=== PATIENT | female | born 1980 | race Caucasian/White ===

== ENCOUNTER → 2017-10-22 | Outpatient (CLI) | payer BC ==
[~2017-10-22] MED LIST: ACET325T38 PO; AGM875T; ALDACTONE25 MG PO; BETA15CR4 TP; CALC600T12 PO; CALCIUM; CHOL500049 PO; DCS100C PO; ETHI1TAB16 PO; FENO120T PO; HYDR-1231 PO; HYDR-3454 PO; INSU100V5 SQ; LETR2.5T4 PO; METF-380 PO; OMEG10005 PO; OMEP20TA2 PO; ONDA-42 SL; ONDAN4ODT PO; PAMI30VI8 SQ; PREN-142 PO; PREN1TAB39; PROG200C6 PO
--- NOTE | 2017-10-22 11:22 | Diagnostic Imaging Report ---
PROCEDURE: US OB SINGLE FETUS <14 WKS. TECHNIQUE: Multiple Real-time grayscale images were obtained over the gravid uterus in various projections. INDICATION: Type 2 diabetes. . COMPARISON: None. FINDINGS: There is a single live intrauterine gestation demonstrated. The crown/rump length measures 2.25 cm corresponding to an estimated gestational age of 9 weeks 0 days. The heart rate is 174 BPM. The left ovary is not demonstrated. The right ovary appears unremarkable. There is no free fluid. IMPRESSION: Single live intrauterine gestation dating 9 weeks 0 days based on today's ultrasound. No acute abnormality is demonstrated. Dictated by: Dictated on workstation # [id number]
== END ==
LOC: RAD 09:54
PROVIDERS: ATTEND Obstetrics & Gynecology
DX: O24.111 Pre-existing type 2 diabetes mellitus, in pregnancy, first trimester (principal); Z3A.09 9 weeks gestation of pregnancy
CPT/HCPCS: 76801

== ENCOUNTER 2017-11-11 05:32 | Outpatient (CLI) | payer BC ==
[~2017-11-11] VITALS: Ht 165.1 cm; Wt 66.2 kg
[~2017-11-11 05:32] MED LIST changes: -ACET325T38 PO; -BETA15CR4 TP; -CALC600T12 PO; -CHOL500049 PO; -INSU100V5 SQ; -OMEG10005 PO; -PAMI30VI8 SQ; -PREN-142 PO; -PROG200C6 PO
[2017-11-11] MEDS ORDERED: CALC600T12 PO (12:38)
[2017-11-11] MEDS ORDERED: PROG200C6 PO (12:38)
[2017-11-11] MEDS ORDERED: CHOL500049 PO (12:38)
[2017-11-11] MEDS ORDERED: PAMI30VI8 SQ (12:38)
[2017-11-11] MEDS ORDERED: PREN-142 PO (12:38)
[2017-11-11] MEDS ORDERED: OMEG10005 PO (12:38)
[2017-11-11] MEDS ORDERED: INSU100V5 SQ (12:38)
[2017-11-11] MEDS ORDERED: BETA15CR4 TP (12:38)
== END 2017-11-11 13:09 | disposition home or self-care (01) ==
LOC: PREOP 05:32
PROVIDERS: ATTEND Obstetrics & Gynecology
DX: Z01.818 Encounter for other preprocedural examination (principal)

== ENCOUNTER 2017-11-19 08:05 | Day surgery (SDC) | payer BC ==
[~2017-11-19] VITALS: Ht 165.1 cm; Wt 66.2 kg
[~2017-11-19 08:05] MED LIST changes: +BETA15CR4 TP; +CALC600T12 PO; +CHOL500049 PO; +INSU100V5 SQ; +OMEG10005 PO; +PAMI30VI8 SQ; +PREN-142 PO; +PROG200C6 PO
[2017-11-19 08:15] VITALS: BP 117/78
[2017-11-19] MEDS ORDERED: LACTATED RINGERS 1,000 ML IV PRN (08:24)
[2017-11-19 08:45] LABS: BASOPHILS % (AUTO) 0 % (0-10); EOSINOPHILS % (AUTO) 1 % (0-10); HEMATOCRIT 38 % (35-52); HEMOGLOBIN 12.9 G/DL (11.5-16.0); LYMPHOCYTES # (AUTO) 1.3 X 10^3 (1.0-4.0); LYMPHOCYTES % (AUTO) 19 % (12-44); MEAN CORPUSCULAR HEMOGLOBIN 29 PG (25-34); MEAN CORPUSCULAR HGB CONC 34 G/DL (32-36); MEAN CORPUSCULAR VOLUME 84 FL (80-99); MEAN PLATELET VOLUME 9.2 FL (7.4-10.4); MONOCYTES # (AUTO) 0.3 X 10^3 (0.0-1.0); MONOCYTES % (AUTO) 4 % (0-12); NEUTROPHILS # (AUTO) 5.1 X 10^3 (1.8-7.8); NEUTROPHILS % (AUTO) 76 % (42-75); PLATELET COUNT 265 10^3/uL (130-400); RED BLOOD COUNT 4.49 10^6/uL (4.35-5.85); RED CELL DISTRIBUTION WIDTH 14.3 % (10.0-14.5); WHITE BLOOD COUNT 6.7 10^3/uL (4.3-11.0)
[2017-11-19] MEDS ORDERED: BUPIVACAINE 0.75% PRESERVATIVE FREE 10 ML ONE (08:57)
[2017-11-19 09:13] LABS: BAND NEUTROPHILS 3 %; BASOPHILS % (MANUAL) 1 %; EOSINOPHILS % (MANUAL) 0 %; LYMPHOCYTES % (MANUAL) 15 %; MONOCYTES % (MANUAL) 8 %; NEUTROPHILS % (MANUAL) 73 %; RBC MORPH NORMAL
[2017-11-19] MEDS ORDERED: BUPIVACAINE 0.25% 30 ML (SENSORCAINE) VIAL ONE (09:40)
--- NOTE | 2017-11-19 10:19 | Progress Note-Pre Operative ---
Pre-Operative Progress Note H&P Reviewed The H&P was reviewed, patient examined and no changes noted. Date Seen by Provider: Nov 19, 2017 Time Seen by Provider: 10:15 Date H&P Reviewed: Nov 19, 2017 Time H&P Reviewed: 10:10 Pre-Operative Diagnosis: incompetent cervix EMILEE KHAN DO Nov 19, 2017 10:19
[2017-11-19] MEDS ORDERED: LIDOCAINE PF 2% 5 ML (XYLOCAINE) VIAL ONE (11:05)
[2017-11-19] MEDS ORDERED: BUPIVACAINE 0.5% 30 ML (SENSORCAINE) VIAL ONE (11:05)
[2017-11-19] MEDS ORDERED: KETOROLAC 30 MG/ML VIAL ONE (11:44)
[2017-11-19] MEDS ORDERED: KETOROLAC 30 MG/ML VIAL IVP ONE (11:45)
[2017-11-19 12:00] VITALS: BP 109/72
--- NOTE | 2017-11-19 12:26 | Anesthesia-Regional Post-Op ---
Regional Patient Condition Mental Status: Alert, Oriented x3 Circulation: Same as Pre-Op Headache: Absent Sensation: Full Recovery Motor Block: Absent Post Op Complications Complications None Follow Up Care/Instructions Patient Instructions None needed. Anesthesia/Patient Condition Patient is doing well, no complaints, stable vital signs, no apparent adverse anesthesia problems. No complications reported per nursing. TYRELL CROUCH CRNA Nov 19, 2017 12:26
[2017-11-19 12:30] VITALS: BP 114/76
[2017-11-19 13:00] VITALS: BP 111/71
--- NOTE | 2017-11-19 13:41 | Operative Report ---
Operative Report Date of Procedure/Surgery Nov 19, 2017 Surgeon (s) EMILEE KHAN DO Phlebotomist Associate (s): NA Post-Operative Diagnosis History of incompetent cervix; Procedure Performed Richar Cuevas Cervical Cerclage Description of Procedure Anesthesia Type: Spinal Estimated blood loss (mL): minimal Specimen(s) collected/removed none Description of the Procedure With informed consent, the patient was taken to the operating room where spinal anesthesia was found to be adequate. A Turcios catheter was placed. FHT were taken. 173. blood sugar 118. A speculum was placed in the vagina. The cervix was noted to be not dilated. The cervix was measured and found to be over 4 cm in length. The anterior and posterior lips were grasped with Allis clamps. An O Ethibond was placed in pursestring fashion at the internal cervical os level. 6 passed were placed to close the cervix. This was tied at 3 o'clock and cut (3 cm in length). The patient was taken to the recovery room in a stable fashion. hearttones were taken in the recovery room. Findings of the Procedure 4 cm closed cervix 173 FHT Allergies and Home Medications Allergies Coded Allergies: No Known Drug Allergies (Unverified , 11/11/17) Home Medications Acetaminophen 325 Mg Tablet, 650 MG PO Q6H PRN for PAIN-MILD TO MODERATE Prescribed by: EMILEE KHAN on 11/19/17 1343 Betamethasone Dipropionate 15 Gm Cream..g., 15 GM TP EVERY OTHER DAY, (Reported) Calcium Carbonate 600 Mg Tablet, 600 MG PO DAILY, (Reported) Insulin Determir 1,000 Units/10 Ml Soln, 68 UNITS SQ HS, (Reported) Insulin Lispro 100 Unit/1 Ml Cartridge, 8 UNIT SQ BEFORE DINNER, (Reported) [place]-3 Fatty Acids 1,000 Mg Capsule, 2,000 MG PO DAILY, (Reported) Vit No.124/Iron/FA 1 Each Tablet, 1 EACH PO DAILY, (Reported) Progesterone,Micronized 200 Mg Capsule, 200 MG PO DAILY, (Reported) Patient Home Medication List Home Medication List Reviewed: Yes EMILEE KHAN DO Nov 19, 2017 13:41
[2017-11-19] MEDS ORDERED: ACET325T38 PO (13:43)
--- NOTE | 2017-11-19 13:48 | Discharge Inst-Women's Service ---
Discharge Inst-Women's Serv Depart Medication/Instructions New, Converted or Re-Newed RX: Other (No rx needed) Instructions pelvic rest for 1 week. Follow up with Linda next week. Then with Dr. Khan every 2 weeks. Final Diagnosis Incompetent cervix Type II diabetes, insulin requiring, 13 week gestation Consults/Follow Up Additional Follow Up: Yes (1 week with Linda, 3 weeks with Krishna) Activity Activity: Activity as Tolerated Driving Instructions: No Driving for 24 Hours NO SMOKING: NO SMOKING Nothing Inside Vagina: No Douching, No [place], No Tampons Other Activity pelvic rest for 1 week, then condoms Call for bleeding > spotting, new discharge/ water breaking Diet Discharge Diet: ADA Diet Symptoms to Report to : Swelling Increased, Bleeding Excessive, Pain Increased, Fever Over 101 Degrees F, Vaginal Bleeding Increase, Cramps in Feet or Legs For Any Problems or Questions: Contact Your Physician EMILEE KHAN DO Nov 19, 2017 13:48
[2017-11-19 14:00] VITALS: BP 115/66
[2017-11-19 18:40] VITALS: BP 115/66
== END 2017-11-19 18:40 | disposition home or self-care (01) ==
LOC: SDC 08:05
PROVIDERS: ATTEND Obstetrics & Gynecology
DX: O34.31 Maternal care for cervical incompetence, first trimester (principal); O24.111 Pre-existing type 2 diabetes mellitus, in pregnancy, first trimester; Z79.4 Long term (current) use of insulin; Z3A.13 13 weeks gestation of pregnancy
CPT/HCPCS: 36415; 82962; 85007; 85027; 87081; 94664

== ENCOUNTER → 2017-12-26 | Outpatient (CLI) | payer BC ==
[~2017-12-26] MED LIST changes: +ACET325T38 PO
--- NOTE | 2017-12-26 15:46 | Diagnostic Imaging Report ---
INDICATION: Pelvic pain. Study is performed for survey. TECHNIQUE: Multiple real-time grayscale images were obtained over the gravid uterus. COMPARISON: 10/22/2017. FINDINGS: There is a single live fetus in a variable presentation. Placenta is posterior. Amniotic fluid volume is normal. heart rate was recorded at 161 beats per minute. Cervical length is 5.4 cm. survey demonstrates kidneys, bladder, and stomach to be unremarkable. brain is unremarkable. Four-chamber heart view is not well seen. There is a three-vessel cord with normal insertion. The spine is limited in evaluation due to position. Biometrical measurements are as follows: Biparietal 4.07 cm, age 18 weeks 3 days. Head circumference 15.2 cm, age 18 weeks 2 days. Abdominal circumference 12.58 cm, age 18 weeks 2 days. Femur length 2.51 cm, age 17 weeks 5 days. Sonographic estimate age: 18 weeks 2 days. Sonographic estimated date of delivery: 05/27/2017. Estimated Weight: 217 gm (+/- 32 gm). LMP percentile: 26%. heart rate: 161 beats per minute. number: 1 of 1. IMPRESSION: Single live IUP at 18 weeks 2 days gestational age demonstrating normal interval growth when compared with prior exam. No complicating features are seen. Note is made that the four-chamber heart view and spine were limited in evaluation due to position and followup could be performed. Dictated by: Dictated on workstation # [id number]
== END ==
LOC: RAD 12:18
PROVIDERS: ATTEND Obstetrics & Gynecology
DX: O26.892 Other specified pregnancy related conditions, second trimester (principal); R10.2 Pelvic and perineal pain; O34.211 Maternal care for low transverse scar from previous cesarean delivery; O09.212 Supervision of pregnancy with history of pre-term labor, second trimester; O34.32 Maternal care for cervical incompetence, second trimester; Z3A.18 18 weeks gestation of pregnancy
CPT/HCPCS: 76805

== ENCOUNTER → 2018-02-06 | Outpatient (CLI) | payer BC ==
--- NOTE | 2018-02-06 13:31 | Diagnostic Imaging Report ---
INDICATION: Follow up heart, spine, and cervical length. TECHNIQUE: Multiple real-time grayscale images were obtained over the gravid uterus. COMPARISON: 12/26/2017. FINDINGS: There is a single live fetus in a cephalic presentation. heart rate was recorded at 158 beats per minute. The placenta is fundal. Amniotic fluid volume is normal. Cervical length is 4.3 cm. A four-chamber heart view is unremarkable. spine remains limited in evaluation. IMPRESSION: Limited obstetrical ultrasound demonstrating a four-chamber heart view to be satisfactory. spine remains limited in evaluation. Dictated by: Dictated on workstation # [id number]
== END ==
LOC: RAD 11:51
PROVIDERS: ATTEND Obstetrics & Gynecology
DX: O24.112 Pre-existing type 2 diabetes mellitus, in pregnancy, second trimester (principal); O09.522 Supervision of elderly multigravida, second trimester; O34.32 Maternal care for cervical incompetence, second trimester; O34.211 Maternal care for low transverse scar from previous cesarean delivery; O09.212 Supervision of pregnancy with history of pre-term labor, second trimester; Z3A.00 Weeks of gestation of pregnancy not specified
CPT/HCPCS: 76816

== ENCOUNTER → 2018-03-10 | Outpatient (CLI) | payer BC ==
--- NOTE | 2018-03-10 15:48 | Diagnostic Imaging Report ---
INDICATION: Follow-up survey. TECHNIQUE: Multiple real-time grayscale images were obtained over the gravid uterus. COMPARISON: 10/22/2017, 12/26/2017, and 02/06/2018. FINDINGS: The previous OB ultrasound exam of 02/06/2018 noted a single live fetus in cephalic presentation. There were no abnormalities identified, but the spine was not well imaged. On this study, the fetus remains in cephalic presentation. heart motion was noted and a rate of 155 bpm was recorded. The spine is visualized and appears to be within normal limits. The growth parameters are fairly uniform and have progressed as expected since the prior exam. The placenta is posterior and there is no previa. The amniotic fluid volume is within normal limits. The cervix is visualized and measures 3.9 cm in length. IMPRESSION: 1. There is a single live fetus of approximately and the EDC remains . 2. There are no abnormalities identified. In particular, the spine appears to be within normal limits. Biometrical measurements are as follows: Biparietal 7.51 cm, age 30 weeks 1 days. Head circumference 27.97 cm, age 30 weeks 5 days. Abdominal circumference 24.60 cm, age 28 weeks 6 days. Femur length 5.50 cm, age 29 weeks 1 days. Sonographic estimate age: 29 weeks 5 days. Sonographic estimated date of delivery: 05/21/18. Estimated Weight: 1346 gm (+/- 197 gm). LMP percentile: 48%. heart rate: 155 beats per minute. number: 1 of 1. Dictated on workstation # [id number]
== END ==
LOC: RAD 09:40
PROVIDERS: ATTEND Obstetrics & Gynecology
DX: O24.312 Unspecified pre-existing diabetes mellitus in pregnancy, second trimester (principal); O34.32 Maternal care for cervical incompetence, second trimester; Z3A.00 Weeks of gestation of pregnancy not specified
CPT/HCPCS: 76816

== ENCOUNTER 2018-03-26 19:13 | Outpatient (CLI) | payer BC ==
[~2018-03-26] VITALS: Ht 165.1 cm; Wt 66.2 kg
[2018-03-26 19:14] VITALS: BP 139/89
[2018-03-26 19:54] VITALS: BP 139/81
[2018-03-26] MEDS ORDERED: SERT20OR6 PO (20:00)
== END 2018-03-26 20:20 | disposition home or self-care (01) ==
LOC: LDRP 19:13 → WSo 19:13
PROVIDERS: ATTEND Obstetrics & Gynecology
DX: O36.8130 Decreased fetal movements, third trimester, not applicable or unspecified (principal); Z3A.31 31 weeks gestation of pregnancy
CPT/HCPCS: 90471; 99213

== ENCOUNTER → 2018-03-27 | Outpatient (CLI) | payer BC ==
[~2018-03-27] MED LIST changes: +SERT20OR6 PO
--- NOTE | 2018-03-27 15:17 | Diagnostic Imaging Report ---
INDICATION: Check growth and biophysical profile. TECHNIQUE: Multiple real-time grayscale images were obtained over the gravid uterus. COMPARISON: 03/10/2018, 02/06/2018, and 12/26/2017. FINDINGS: The recent OB ultrasound exam performed on 03/10/2018 noted a single live fetus at approximately 28 weeks 6 days gestation. There were no abnormalities identified but the upper cervical spine was not well visualized. On this exam, the fetus is again visualized. The fetus is cephalic in presentation. heart motion was noted and a rate of 134 BPM was recorded. There were no obvious abnormalities identified. The biophysical profile score is 8/8 and within normal limits. The placenta is posterior and there is no previa. The amniotic fluid volume is within normal limits. The growth parameters are fairly uniform and have progressed as expected since the prior study. Biometrical measurements are as follows: Biparietal 7.81 cm, age 31 weeks 3 days. Head circumference 28.45 cm, age 31 weeks 2 days. Abdominal circumference 27 cm, age 31 weeks 1 days. Femur length 6.03 cm, age 31 weeks 3 days. Sonographic estimate age: 31 weeks 3 days. Sonographic estimated date of delivery: 05/26/2018. Estimated Weight: 1721 gm (+/- 251 gm). LMP percentile: 35%. heart rate: 134 beats per minute. number: 1 of 1. IMPRESSION: 1. There is a single live fetus at approximately 31 weeks 2 days gestation +/-1 week. The EDC remains May 27, 2018. 2. There were no abnormalities identified. 3. The biophysical profile score is 8/8 and within normal limits. 4. The growth parameters have progressed as expected since the prior study. Dictated by: Dictated on workstation # [id number]
== END ==
LOC: RAD 11:34
PROVIDERS: ATTEND Obstetrics & Gynecology
DX: O24.113 Pre-existing type 2 diabetes mellitus, in pregnancy, third trimester (principal); Z3A.31 31 weeks gestation of pregnancy
CPT/HCPCS: 76805; 76819

== ENCOUNTER 2018-04-03 12:02 | Inpatient (IN) | payer BC ==
[~2018-04-03] VITALS: Ht 165.1 cm; Wt 73.5 kg
[2018-04-03] VITALS (23 sets, daily range): BP systolic 126–179; BP diastolic 76–104
[2018-04-03 13:38] LABS: BASOPHILS % (AUTO) 0 % (0-10); EOSINOPHILS % (AUTO) 0 % (0-10); HEMATOCRIT 36 % (35-52); LYMPHOCYTES # (AUTO) 1.4 X 10^3 (1.0-4.0); LYMPHOCYTES % (AUTO) 20 % (12-44); MEAN CORPUSCULAR HEMOGLOBIN 27 PG (25-34); MEAN CORPUSCULAR HGB CONC 33 G/DL (32-36); MEAN CORPUSCULAR VOLUME 81 FL (80-99); MEAN PLATELET VOLUME 10.4 FL (7.4-10.4); MONOCYTES # (AUTO) 0.5 X 10^3 (0.0-1.0); MONOCYTES % (AUTO) 7 % (0-12); NEUTROPHILS # (AUTO) 5.1 X 10^3 (1.8-7.8); NEUTROPHILS % (AUTO) 73 % (42-75); PLATELET COUNT 189 10^3/uL (130-400); RED BLOOD COUNT 4.42 10^6/uL (4.35-5.85); RED CELL DISTRIBUTION WIDTH 14.5 % (10.0-14.5)
[2018-04-03 13:59] LABS: ALANINE AMINOTRANSFERASE 17 U/L (0-55); ALBUMIN 3.3 GM/DL (3.2-4.5); ALKALINE PHOSPHATASE 91 U/L (40-136); BILIRUBIN,TOTAL 0.2 MG/DL (0.1-1.0); BUN/CREATININE RATIO 18; CALCIUM 9.9 MG/DL (8.5-10.1); CARBON DIOXIDE 20 MMOL/L (21-32); CHLORIDE 106 MMOL/L (98-107); CREATININE SERUM 0.67 MG/DL (0.60-1.30); GFR ESTIMATED > 60; GLUCOSE 69 MG/DL (70-105); POTASSIUM 4.3 MMOL/L (3.6-5.0); SODIUM 135 MMOL/L (135-145); TOTAL PROTEIN 6.7 GM/DL (6.4-8.2); URIC ACID 5.8 MG/DL (2.6-7.2)
[2018-04-03] MEDS: BETAMETHASONE ACE/NA PHOS 6 MG/ML (CELESTONE SOLUSPAN) IM SCH (14:02)
--- NOTE | 2018-04-03 15:02 | History & Physical-OB ---
OB - Chief Complaint & HPI Date/Time Date of Admission: Date of Admission: Date seen by a Provider: Apr 03, 2018 Time Seen by a Provider: 17:15 Chief Complaint/History OB-Reason for Admission/Chief: Medical Complication Hx : 3 Hx Para: 1 Expected Date of Delivery: May 27, 2018 Gestational Age in Weeks: 32 Gestational Age in Days: 2 Other reason for admission: Soledad presented to the clinic today for routine visit. she presented without complaint. during routine scheduled non stress test (due to history of delivery and diabetes in , AMA) she was having fairly regular contractions. She was not feeling them all and they were mild, but she had two variable decelerations. The rest of the strip was reactive, but she was sent to labor and delivery for continued monitoring. Her blood pressure in the clinic was 128/90. Also 1000 glucose and 100 protein on urine dip. She was otherwise asymptomatic. She was sent to the floor and monitoring was reassuring. She has not had any bleeding. She was terri about every 3-4 minutes but theses were not painful and she did not notice many of them. However, her blood pressures while being monitored were elevated (175/98 and 169/100). PIH labs and prot/ creat were done. Labs wnl but prot/creat was 0.6. We do not have a 24 hour urine nor a previous ratio. She has had normal survey and growth scans have been within normal limits. She has been receiving IM hydroxyprogesterone injections weekly Received flu vaccine and TDaP. History - she has a cerclage placed at 13 weeks due to history of cervical incompetence. She also has history of delivery at 17 weeks due to incompetent cervix. Her last was complicated by cerclage. She reached 35 weeks and had cerclage removed at 35 weeks due to contractions and vaginal spotting. She continued into labor the next day and had spontaneous prolapsed cord and had emergency section. This was spontaneous. She has a history of PCOS and had recently developed diabetes (Type II) managed by Dr. Auguste. She has managed her blood sugars and insulin dosing. She was up to 64 units bid and then decreased to 60 units a few weeks ago. This has been increased again, but we had discussed the concern for the decrease in insulin demand. Her last A1C was 4.8. The patient also is AMA. She has another son that is adopted. He has congenital CMV so the patient was concerned with exposure, but her testing has been negative (she has never had symptoms). Admission Nurse Assessment Rev: Yes History of Labs 0+/- HBsAg- HIV - Hep B and C- Rub I VDRL NR initial A1C 7.1 most recent was 4.8 Allergies and Home Medications Allergies Coded Allergies: No Known Drug Allergies (Unverified , 11/11/17) Home Medications Betamethasone Dipropionate 15 Gm Cream..g., 15 GM TP EVERY OTHER DAY, (Reported) Calcium Carbonate 600 Mg Tablet, 600 MG PO DAILY, (Reported) Insulin Determir 1,000 Units/10 Ml Soln, 68 UNITS SQ HS, (Reported) [place]-3 Fatty Acids 1,000 Mg Capsule, 2,000 MG PO DAILY, (Reported) Vit No.124/Iron/FA 1 Each Tablet, 1 EACH PO DAILY, (Reported) Sertraline HCl 20 Mg/1 Ml Oral.conc, 10 MG PO DAILY, (Reported) Patient Home Medication List Home Medication List Reviewed: Yes OB - History Hx of Present Care: Yes Ultrasounds: Normal mid trimester US Obstetrical Complications: Gestational Diabetes, Other (history of delivery) Medical Complications: Other (cervical incompetence) Information Induced Hypertension: No Maternal Gestational Diabetes: Yes Hemorrhage: No Obstetrical History Hx : 3 Hx Para: 1 Hx # Term Pregnancies: 0 Hx # Pregnancies: 1 Number of Living Children: 1 Hx Termination: No Hx Total # of Abortions (Spona: 1 (17 week cervical incompetence) Hx Multiple Gestation: No Hx Stillbirth: No Hx Complication: Yes (INCOMPETENT CERVIX. HAD A CERCLAGE REMOVED YESTERDAY) Hx Induced Hypertens: No Hx Maternal Gestational Diabet: Yes Delivery History Hx Dystocia: No Hx Large For Gestational Age I: No Hx Small for Gestational Age I: No Hx Section: Yes Hx Vaginal Delivery Post C-Sec: No Hx Blood Disorders: No Adverse Rxn to Tranfusion: No (N/A) Patient Past Medical History type II diabetes hyperlipidemia history of PCOS/insulin resistance Social History/Family History HIV/AIDS: No Recent Infectious Disease Expo: No Sexually Transmitted Disease: No Alcohol Use: Denies Use Recreational Drug Use: No Smoking Cessation: Never smoker 2nd Hand Smoke Exposure: No Immunizations Tetanus Booster (TDap): Less than 5yrs (03/05/18) Date of Influenza Vaccine: Jan 16, 2018 RPR/VDRL: Negative GBS Status: Unknown HBsAG: Negative OB - Admission Exam Physical Exam Vitals: Vital Signs 04/03/18 04/03/18 12:15 13:10 Temp 97.5 Pulse 87 Resp 18 B/P (MAP) 157/84 (108) O2 Delivery Room Air HEENT: NCAT Heart: Rhythm Normal Lungs: Clear, Crackles Abdomen: Gravid Extremities: Other (dtr 2+) Reflexes: Normal Cervical Dilatation: 1cm Station: Ballotable Membranes: Intact Heart Rate: 140's Accelerations: Accelerations Present Decelerations: Variable Decelerations (x1) Short Term Variability: Present [place] Binner Variability: Average (6-25) Contractions on Admission: < 5 Minutes Apart Intensity: Mild Labs Laboratory Tests Test 04/03/18 13:35 04/03/18 14:05 Range/Units White Blood Count 7.0 4.3-11.0 10^3/uL Red Blood Count 4.42 4.35-5.85 10^6/uL Hemoglobin 12.0 11.5-16.0 G/DL Hematocrit 36 35-52 % Mean Corpuscular Volume 81 80-99 FL Mean Corpuscular Hemoglobin 27 25-34 PG Mean Corpuscular Hemoglobin Concent 33 32-36 G/DL Red Cell Distribution Width 14.5 10.0-14.5 % Platelet Count 189 130-400 10^3/uL Mean Platelet Volume 10.4 7.4-10.4 FL Neutrophils (%) (Auto) 73 42-75 % Lymphocytes (%) (Auto) 20 12-44 % Monocytes (%) (Auto) 7 0-12 % Eosinophils (%) (Auto) 0 0-10 % Basophils (%) (Auto) 0 0-10 % Neutrophils # (Auto) 5.1 1.8-7.8 X 10^3 Lymphocytes # (Auto) 1.4 1.0-4.0 X 10^3 Monocytes # (Auto) 0.5 0.0-1.0 X 10^3 Eosinophils # (Auto) 0.0 0.0-0.3 10^3/uL Basophils # (Auto) 0.0 0.0-0.1 10^3/uL Sodium Level 135 135-145 MMOL/L Potassium Level 4.3 3.6-5.0 MMOL/L Chloride Level 106 98-107 MMOL/L Carbon Dioxide Level 20 L 21-32 MMOL/L Anion Gap 9 5-14 MMOL/L Blood Urea Nitrogen 12 7-18 MG/DL Creatinine 0.67 0.60-1.30 MG/DL Estimat Glomerular Filtration Rate > 60 BUN/Creatinine Ratio 18 Glucose Level 69 L 70-105 MG/DL Uric Acid 5.8 2.6-7.2 MG/DL Calcium Level 9.9 8.5-10.1 MG/DL Corrected Calcium 10.5 H 8.5-10.1 MG/DL Total Bilirubin 0.2 0.1-1.0 MG/DL Aspartate Amino Transf (AST/SGOT) 15 5-34 U/L Alanine Aminotransferase (ALT/SGPT) 17 0-55 U/L Alkaline Phosphatase 91 40-136 U/L Lactate Dehydrogenase 150 125-220 U/L Total Protein 6.7 6.4-8.2 GM/DL Albumin 3.3 3.2-4.5 GM/DL Urine Protein 11 6-12 MG/DL Urine Creatinine 18 L 30-125 MG/DL Urine Protein/Creatinine Ratio 0.61 OB - Assessment/Plan/Diagnosis Assessment Assessment: IUP - , other (Preeclampsia, contractions, gestational diabetes) Admission Dx 1. Patient is admitted for treatment of preeclampsia 2. contractions with threatened delivery/ history of delivery 3. Type II diabetes in 4. History of cervical incompetence s/p Cerclage 5. History of previous section. Plan - admission for treatment of preeclampsia. Will start magnesium for seizure prophylaxis and neuroprotection. Will transfer if unable to control blood pressures. Will start betamethasone. Will need insulin replacement more that normal due to the glucocorticoid. May transfer as necessary. Patient's does works at [employer] so she would prefer transfer there if indicated. They do not have perinatology but do have a NICU. Could transfer to [place] but there is no immediate coverage either. Discussed transfer to [place]. At this point she would prefer [facility] if necessary. We discussed delivery at 34 weeks if we are able to control with bedrest until that time. She and understand. Admission Status: Inpatient Order (span 2 midnights) Reason for Inpatient Admission: Preeclampsia labor EMILEE KHAN DO Apr 03, 2018 15:02
[2018-04-03] MEDS ORDERED: CALCIUM GLUC. 10% 4.65 MEQ/10 ML VIAL IV PRN (15:15)
[2018-04-03] MEDS ORDERED: MAGNESIUM 4 GM/100 ML IVPB 100 ML IV NR (15:15)
[2018-04-03] MEDS: NS IV 1000 ML 1,000 ML IV SCH (15:39)
[2018-04-03] MEDS: MAGNESIUM SULFATE DRIP 500 ML IV SCH (16:10)
[2018-04-03] MEDS ORDERED: inSUlin ASPART (NovoLOG) 1 UNIT/0.01 ML (CHARGE PER UNIT) SC SCH (18:45)
[2018-04-03] MEDS ORDERED: inSUlin DETERMIR 1 UNIT/0.01 ML (LEVEMIR) CHARGE PER UNIT SQ SCH (21:00)
[2018-04-03] MEDS ORDERED: LORATADINE (CLARITIN) 10 MG TAB PO SCH (21:00)
[2018-04-03] MEDS: inSUlin DETERMIR 1 UNIT/0.01 ML (LEVEMIR) CHARGE PER UNIT SQ SCH (21:41)
[2018-04-03] MEDS: inSUlin ASPART (NovoLOG) 1 UNIT/0.01 ML (CHARGE PER UNIT) SC SCH (21:50)
[2018-04-04] VITALS (26 sets, daily range): BP systolic 115–152; BP diastolic 66–96
[2018-04-04] MEDS: MAGNESIUM SULFATE DRIP 500 ML IV SCH ×3 (00:58→16:45)
[2018-04-04 06:07] LABS: ALANINE AMINOTRANSFERASE 15 U/L (0-55); ALBUMIN 3.2 GM/DL (3.2-4.5); ALKALINE PHOSPHATASE 93 U/L (40-136); BILIRUBIN,TOTAL 0.3 MG/DL (0.1-1.0); BUN/CREATININE RATIO 15; CALCIUM 6.8 MG/DL (8.5-10.1); CARBON DIOXIDE 17 MMOL/L (21-32); CHLORIDE 104 MMOL/L (98-107); CREATININE SERUM 0.66 MG/DL (0.60-1.30); GFR ESTIMATED > 60; GLUCOSE 126 MG/DL (70-105); POTASSIUM 4.1 MMOL/L (3.6-5.0); SODIUM 131 MMOL/L (135-145); TOTAL PROTEIN 6.6 GM/DL (6.4-8.2); URIC ACID 6.1 MG/DL (2.6-7.2)
[2018-04-04] MEDS: NS IV 1000 ML 1,000 ML IV SCH ×2 (06:55→22:03)
[2018-04-04] MEDS: inSUlin DETERMIR 1 UNIT/0.01 ML (LEVEMIR) CHARGE PER UNIT SQ SCH ×2 (09:37→21:45)
--- NOTE | 2018-04-04 10:48 | Physician Progress Note ---
Progress Note Assessment/Plan Date Seen by Provider: Apr 04, 2018 Time Seen by Provider: 10:00 Events since last exam after bolus of magnesium blood pressures were better but still elevated. She was however, terri every 3 minutes. Was feeling these contractions. Cervix was closed and can palpate the cerclage. Increased magnesium to 2.5 grams/hour. She has had excellent urine output. Blood pressures better and contractions have slowed. She is flushed and hot. Consistent with magnesium. well being is reassuring. Assessment/Plan 1. Preeclampsia = elevated blood pressured, proteinuria. No severe features yet. Labs have been with in normal limits. Continue magnesium sulfate for seizure prophylaxis and neuroprotection. 2. labor - magnesium tocolysis has been successful. Betamethasone x 2 today. Await US and BPP 3. Type II diabetes in . Blood sugars are controlled with Levemir ( Lantus at home is not available). Some hyperglycemia is expected with the betamethasone. Will continue sliding scale coverage. 4. She does have proteinuria. I do not have results of baseline 24 hour urine but she may have some underlying proteinuria due to the diabetes. Vitals Last set of Vitals Signs Vital Signs Date Time Temp Pulse Resp B/P (MAP) Pulse Ox O2 Delivery O2 Flow Rate FiO2 04/04/18 07:00 80 18 122/78 (93) Room Air 04/04/18 04:00 97.7 I&O I&O Intake and Output 04/04/18 00:00 Intake Total 1394 ml Output Total 1200 ml Balance 194 ml Intake Oral 1294 ml IV Total 100 ml Output Urine Total 1200 ml Labs Laboratory Tests 04/03/18 13:35: White Blood Count 7.0, Red Blood Count 4.42, Hemoglobin 12.0, Hematocrit 36, Mean Corpuscular Volume 81, Mean Corpuscular Hemoglobin 27, Mean Corpuscular Hemoglobin Concent 33, Red Cell Distribution Width 14.5, Platelet Count 189, Mean Platelet Volume 10.4, Neutrophils (%) (Auto) 73, Lymphocytes (%) (Auto) 20 , Monocytes (%) (Auto) 7, Eosinophils (%) (Auto) 0, Basophils (%) (Auto) 0, Neutrophils # (Auto) 5.1, Lymphocytes # (Auto) 1.4, Monocytes # (Auto) 0.5, Eosinophils # (Auto) 0.0, Basophils # (Auto) 0.0, Sodium Level 135, Potassium Level 4.3, Chloride Level 106, Carbon Dioxide Level 20L, Anion Gap 9, Blood Urea Nitrogen 12, Creatinine 0.67, Estimat Glomerular Filtration Rate > 60, BUN/ Creatinine Ratio 18, Glucose Level 69L, Uric Acid 5.8, Calcium Level 9.9, Corrected Calcium 10.5H, Total Bilirubin 0.2, Aspartate Amino Transf (AST/SGOT) 15, Alanine Aminotransferase (ALT/SGPT) 17, Alkaline Phosphatase 91, Lactate Dehydrogenase 150, Total Protein 6.7, Albumin 3.3 04/03/18 14:05: Urine Protein 11, Urine Creatinine 18L, Urine Protein/Creatinine Ratio 0.61 04/03/18 16:34: Glucometer 162H 04/03/18 19:44: Glucometer 166H 04/03/18 21:40: Glucometer 183H 04/04/18 05:30: Sodium Level 131L, Potassium Level 4.1, Chloride Level 104, Carbon Dioxide Level 17L, Anion Gap 10, Blood Urea Nitrogen 10, Creatinine 0.66, Estimat Glomerular Filtration Rate > 60, BUN/Creatinine Ratio 15, Glucose Level 126H, Uric Acid 6.1, Calcium Level 6.8L, Corrected Calcium 7.4L, Magnesium Level 5.8*H , Total Bilirubin 0.3, Aspartate Amino Transf (AST/SGOT) 13, Alanine Aminotransferase (ALT/SGPT) 15, Alkaline Phosphatase 93, Lactate Dehydrogenase 171, Total Protein 6.6, Albumin 3.2 EMILEE KHAN DO Apr 04, 2018 10:48
[2018-04-04] MEDS: ONDANSETRON 4 MG (ZOFRAN) ORAL DISSOLVE TAB PO PRN ×2 (10:58→17:25)
[2018-04-04] MEDS: ACETAMINOPHEN 500 MG TAB (TYLENOL) PO PRN ×2 (10:58→17:25)
--- NOTE | 2018-04-04 12:55 | Diagnostic Imaging Report ---
INDICATION: Preeclampsia, gestational diabetes. TECHNIQUE: Multiple real-time grayscale images were obtained over the gravid uterus. COMPARISON: None. FINDINGS: Due to advanced gestational age, the maternal adnexa are poorly evaluated. A single live intrauterine is present in cephalic presentation. The placenta is fundal in position and there is no features of previa. The CHARU is normal at 9.1 cm. Biophysical stress test gives a score of 8/8. Biometrical measurements are as follows: Biparietal 8.20 cm, age 33 weeks 0 days. Head circumference 30.47 cm, age 34 weeks 0 days. Abdominal circumference 27.64 cm, age 31 weeks 5 days. Femur length 6.18 cm, age 32 weeks 1 days. Sonographic estimate age: 32 weeks 5 days. Sonographic estimated date of delivery: 05/25/18. Estimated Weight: 1909 gm (+/- 279 gm). LMP percentile: 31%. heart rate: 138 beats per minute. number: 1 of 1. IMPRESSION: 1. Normal biophysical profile. Dictated by: Dictated on workstation # [id number]
[2018-04-04] MEDS: BETAMETHASONE ACE/NA PHOS 6 MG/ML (CELESTONE SOLUSPAN) IM SCH (14:13)
[2018-04-04] MEDS: inSUlin ASPART (NovoLOG) 1 UNIT/0.01 ML (CHARGE PER UNIT) SC SCH (21:50)
[2018-04-04] MEDS ORDERED: PRENATAL VITAMIN 1 EA TAB PO ONE (21:53)
[2018-04-04] MEDS: LORATADINE (CLARITIN) 10 MG TAB PO SCH (21:58)
[2018-04-05] VITALS (21 sets, daily range): BP systolic 111–173; BP diastolic 73–101
[2018-04-05 07:51] LABS: BASOPHILS % (AUTO) 0 % (0-10); EOSINOPHILS % (AUTO) 0 % (0-10); HEMATOCRIT 35 % (35-52); HEMOGLOBIN 11.5 G/DL (11.5-16.0); LYMPHOCYTES # (AUTO) 0.7 X 10^3 (1.0-4.0); LYMPHOCYTES % (AUTO) 8 % (12-44); MEAN CORPUSCULAR HEMOGLOBIN 27 PG (25-34); MEAN CORPUSCULAR HGB CONC 33 G/DL (32-36); MEAN CORPUSCULAR VOLUME 82 FL (80-99); MEAN PLATELET VOLUME 9.8 FL (7.4-10.4); MONOCYTES # (AUTO) 0.5 X 10^3 (0.0-1.0); MONOCYTES % (AUTO) 5 % (0-12); NEUTROPHILS # (AUTO) 8.1 X 10^3 (1.8-7.8); NEUTROPHILS % (AUTO) 87 % (42-75); PLATELET COUNT 219 10^3/uL (130-400); RED BLOOD COUNT 4.22 10^6/uL (4.35-5.85); RED CELL DISTRIBUTION WIDTH 14.7 % (10.0-14.5); WHITE BLOOD COUNT 9.3 10^3/uL (4.3-11.0)
[2018-04-05] MEDS ORDERED: MAGNESIUM SULFATE DRIP 500 ML IV SCH (08:00)
[2018-04-05 08:12] LABS: BAND NEUTROPHILS 1 %; HYPERSEGMENTED NEUT SLIGHT; LYMPHOCYTES % (MANUAL) 6 %; MONOCYTES % (MANUAL) 6 %; NEUTROPHILS % (MANUAL) 83 %
[2018-04-05 08:13] LABS: RBC MORPH NORMAL; TOXIC GRANULATION/VACUOLAZATIO 1+
[2018-04-05 08:20] LABS: ALANINE AMINOTRANSFERASE 16 U/L (0-55); ALBUMIN 3.3 GM/DL (3.2-4.5); ALKALINE PHOSPHATASE 87 U/L (40-136); BILIRUBIN,TOTAL 0.2 MG/DL (0.1-1.0); BUN/CREATININE RATIO 14; CARBON DIOXIDE 17 MMOL/L (21-32); CHLORIDE 103 MMOL/L (98-107); CREATININE SERUM 0.64 MG/DL (0.60-1.30); GFR ESTIMATED > 60; GLUCOSE 131 MG/DL (70-105); POTASSIUM 4.1 MMOL/L (3.6-5.0); SODIUM 130 MMOL/L (135-145); TOTAL PROTEIN 6.8 GM/DL (6.4-8.2); URIC ACID 6.1 MG/DL (2.6-7.2)
[2018-04-05] MEDS: ONDANSETRON 4 MG (ZOFRAN) ORAL DISSOLVE TAB PO PRN ×2 (08:23→11:57)
[2018-04-05 08:31] LABS: CALCIUM 5.7 MG/DL (8.5-10.1)
[2018-04-05] MEDS: MAGNESIUM SULFATE DRIP 500 ML IV SCH (08:55)
[2018-04-05] MEDS ORDERED: morphine INJ 10 MG/ML 1ML (SYR OR VIAL) IVP ONE (09:00)
[2018-04-05] MEDS: inSUlin DETERMIR 1 UNIT/0.01 ML (LEVEMIR) CHARGE PER UNIT SQ SCH ×2 (09:32→21:19)
--- NOTE | 2018-04-05 10:10 | Physician Progress Note ---
Progress Note Assessment/Plan Date Seen by Provider: Apr 05, 2018 Time Seen by Provider: 09:30 Events since last exam Did well last night. Blood pressures controlled. well reassuring. Rare contractions. Plan to DC the Magnesium after 48 hours. 24 hours after the second dose of betamethasone. BPP /. US without evidence of growth restriction. Assessment/Plan 1. Preeclampsia, no severe features. Continue BP management, bedrest with BRP 2. labor s/p tocolysis/magnesium sulfate/ neuroprotection. Procardia 30 mg XR for blood pressure and labor. s/p betamethasone 3. Type II diabetes. Blood sugars elevated and controlled with Levemir, Humalog and sliding scale 4. History of delivery 5. Incompetent cervix, s/p cerclage 6. History of section Continue procardia. DC magnesium 24 hours after last dose of betamethasone. Plan to deliver at 34 weeks via repeat section with risk reduction salpingectomy. Patient is AMA and high risk in future pregnancies. Vitals Last set of Vitals Signs Vital Signs Date Time Temp Pulse Resp B/P (MAP) Pulse Ox O2 Delivery O2 Flow Rate FiO2 04/05/18 07:00 75 18 04/04/18 19:00 141/86 (104) Room Air 04/04/18 16:00 97.9 97 I&O I&O Intake and Output 04/05/18 00:00 Intake Total 4024 ml Output Total 4500 ml Balance -476 ml Intake Oral 2024 ml IV Total 2000 ml Output Urine Total 4500 ml Labs Laboratory Tests 04/04/18 11:04: Glucometer 97 04/04/18 14:18: Glucometer 127H 04/04/18 21:47: Glucometer 186H 04/05/18 07:45: White Blood Count 9.3, Red Blood Count 4.22L, Hemoglobin 11.5, Hematocrit 35, Mean Corpuscular Volume 82, Mean Corpuscular Hemoglobin 27, Mean Corpuscular Hemoglobin Concent 33, Red Cell Distribution Width 14.7H, Platelet Count 219, Mean Platelet Volume 9.8, Neutrophils (%) (Auto) 87H, Lymphocytes (%) (Auto) 8L , Monocytes (%) (Auto) 5, Eosinophils (%) (Auto) 0, Basophils (%) (Auto) 0, Neutrophils # (Auto) 8.1H, Lymphocytes # (Auto) 0.7L, Monocytes # (Auto) 0.5, Eosinophils # (Auto) 0.0, Basophils # (Auto) 0.0, Neutrophils % (Manual) 83, Lymphocytes % (Manual) 6, Monocytes % (Manual) 6, Band Neutrophils 1, Hypersegmented Neutrophils SLIGHT, Toxic Granulation 1+, Blood Morphology Comment NORMAL, Sodium Level 130L, Potassium Level 4.1, Chloride Level 103, Carbon Dioxide Level 17L, Anion Gap 10, Blood Urea Nitrogen 9, Creatinine 0.64, Estimat Glomerular Filtration Rate > 60, BUN/Creatinine Ratio 14, Glucose Level 131H, Uric Acid 6.1, Calcium Level 5.7*L, Corrected Calcium 6.3L, Magnesium Level 7.0*H, Total Bilirubin 0.2, Aspartate Amino Transf (AST/SGOT) 14, Alanine Aminotransferase (ALT/SGPT) 16, Alkaline Phosphatase 87, Lactate Dehydrogenase 219, Total Protein 6.8, Albumin 3.3 04/05/18 08:10: Urine Protein 20H, Urine Creatinine 33, Urine Protein/Creatinine Ratio 0.61 EMILEE KHAN DO Apr 05, 2018 10:10
[2018-04-05] MEDS ORDERED: morphine INJ 10 MG/ML 1ML (SYR OR VIAL) ONE (11:51)
[2018-04-05] MEDS ORDERED: LABETALOL HCL 20 MG/4 ML VIAL IV NR (12:45)
[2018-04-05] MEDS: ACETAMINOPHEN 500 MG TAB (TYLENOL) PO PRN (16:21)
[2018-04-05] MEDS ORDERED: NIFEdipine ER 30 MG (PROCARDIA XL) TAB PO NR (18:00)
[2018-04-05] MEDS: inSUlin ASPART (NovoLOG) 1 UNIT/0.01 ML (CHARGE PER UNIT) SC SCH (20:29)
[2018-04-05] MEDS: LORATADINE (CLARITIN) 10 MG TAB PO SCH (21:19)
[2018-04-06] VITALS: BP 125/59
[2018-04-06 04:00] VITALS: BP 127/72
[2018-04-06 06:08] LABS: BASOPHILS % (AUTO) 0 % (0-10); EOSINOPHILS # (AUTO) 0.1 10^3/uL (0.0-0.3); EOSINOPHILS % (AUTO) 1 % (0-10); HEMATOCRIT 32 % (35-52); HEMOGLOBIN 10.6 G/DL (11.5-16.0); LYMPHOCYTES # (AUTO) 1.3 X 10^3 (1.0-4.0); LYMPHOCYTES % (AUTO) 15 % (12-44); MEAN CORPUSCULAR HEMOGLOBIN 27 PG (25-34); MEAN CORPUSCULAR HGB CONC 33 G/DL (32-36); MEAN CORPUSCULAR VOLUME 83 FL (80-99); MEAN PLATELET VOLUME 10.2 FL (7.4-10.4); MONOCYTES # (AUTO) 0.7 X 10^3 (0.0-1.0); MONOCYTES % (AUTO) 8 % (0-12); NEUTROPHILS # (AUTO) 6.7 X 10^3 (1.8-7.8); NEUTROPHILS % (AUTO) 77 % (42-75); PLATELET COUNT 228 10^3/uL (130-400); RED CELL DISTRIBUTION WIDTH 15.1 % (10.0-14.5); WHITE BLOOD COUNT 8.7 10^3/uL (4.3-11.0)
[2018-04-06 06:28] LABS: ALANINE AMINOTRANSFERASE 14 U/L (0-55); ALBUMIN 2.9 GM/DL (3.2-4.5); ALKALINE PHOSPHATASE 81 U/L (40-136); BILIRUBIN,TOTAL 0.3 MG/DL (0.1-1.0); BUN/CREATININE RATIO 21; CALCIUM 6.2 MG/DL (8.5-10.1); CARBON DIOXIDE 17 MMOL/L (21-32); CHLORIDE 106 MMOL/L (98-107); CREATININE SERUM 0.62 MG/DL (0.60-1.30); GFR ESTIMATED > 60; GLUCOSE 93 MG/DL (70-105); POTASSIUM 4.1 MMOL/L (3.6-5.0); SODIUM 133 MMOL/L (135-145); TOTAL PROTEIN 6.1 GM/DL (6.4-8.2); URIC ACID 6.7 MG/DL (2.6-7.2)
[2018-04-06 06:29] LABS: BAND NEUTROPHILS 2 %; EOSINOPHILS % (MANUAL) 1 %; LYMPHOCYTES % (MANUAL) 12 %; MONOCYTES % (MANUAL) 6 %; NEUTROPHILS % (MANUAL) 79 %; RBC MORPH NORMAL
[2018-04-06 08:30] VITALS: BP 133/79
[2018-04-06] MEDS ORDERED: NIFEdipine ER 30 MG (PROCARDIA XL) TAB PO SCH (09:00)
[2018-04-06] MEDS: inSUlin DETERMIR 1 UNIT/0.01 ML (LEVEMIR) CHARGE PER UNIT SQ SCH ×2 (09:28→20:40)
--- NOTE | 2018-04-06 10:40 | Physician Progress Note ---
Progress Note Assessment/Plan Date Seen by Provider: Apr 06, 2018 Time Seen by Provider: 10:35 Events since last exam Magnesium was stopped. Procardia was started. She states she feels much better (off magnesium). Turcios is out. Continuing diuresis. well being is good. . Ambulating to bathroom. SCDs. are in place. Assessment/Plan 1. Preeclampsia - still without severe features. Plan to deliver at 34 weeks or beyond 2. Preexisting Type II diabetes - on Insulin. Hyperglycemia after betamethasone is resolving 3. labor - s/p tocolysis and betamethasone 4. history of delivery - s/p cerclage/ tocolysis (early loss and then 35 week labor) 5. Advanced maternal age 6. Plan - continue procardia for hypertension/preeclampsia and assist with tocolysis C ontinue Insulin as ordered (on Lantus at home but Levemir here) Plan repeat CS on 04/18/18. Will keep her inpatient. but if she is stable for several days, may consider discharge to home before the CS. Vitals Last set of Vitals Signs Vital Signs Date Time Temp Pulse Resp B/P (MAP) Pulse Ox O2 Delivery O2 Flow Rate FiO2 04/06/18 08:30 98.3 79 18 133/79 (97) Room Air 04/06/18 04:00 95 I&O I&O Intake and Output 04/06/18 00:00 Intake Total 3240 ml Output Total 5500 ml Balance -2260 ml Intake Oral 2350 ml IV Total 890 ml Output Urine Total 5500 ml Labs Laboratory Tests 04/05/18 11:48: Glucometer 137H 04/05/18 20:24: Glucometer 184H 04/06/18 05:43: White Blood Count 8.7, Red Blood Count 3.90L, Hemoglobin 10.6L, Hematocrit 32L, Mean Corpuscular Volume 83, Mean Corpuscular Hemoglobin 27, Mean Corpuscular Hemoglobin Concent 33, Red Cell Distribution Width 15.1H, Platelet Count 228, Mean Platelet Volume 10.2, Neutrophils (%) (Auto) 77H, Lymphocytes (%) (Auto) 15 , Monocytes (%) (Auto) 8, Eosinophils (%) (Auto) 1, Basophils (%) (Auto) 0, Neutrophils # (Auto) 6.7, Lymphocytes # (Auto) 1.3, Monocytes # (Auto) 0.7, Eosinophils # (Auto) 0.1, Basophils # (Auto) 0.0, Neutrophils % (Manual) 79, Lymphocytes % (Manual) 12, Monocytes % (Manual) 6, Eosinophils % (Manual) 1, Band Neutrophils 2, Blood Morphology Comment NORMAL, Sodium Level 133L, Potassium Level 4.1, Chloride Level 106, Carbon Dioxide Level 17L, Anion Gap 10 , Blood Urea Nitrogen 13, Creatinine 0.62, Estimat Glomerular Filtration Rate > 60, BUN/Creatinine Ratio 21, Glucose Level 93, Uric Acid 6.7, Calcium Level 6.2L , Corrected Calcium 7.1L, Total Bilirubin 0.3, Aspartate Amino Transf (AST/SGOT ) 18, Alanine Aminotransferase (ALT/SGPT) 14, Alkaline Phosphatase 81, Lactate Dehydrogenase 220, Total Protein 6.1L, Albumin 2.9L 04/06/18 05:44: Glucometer 98 Focused Exam Respiratory: Lungs Clear, Normal Breath Sounds Cardiovascular: Regular Rate, Rhythm, Other (1+ edema. DTR 2+) EMILEE KHAN DO Apr 06, 2018 10:40
[2018-04-06 12:30] VITALS: BP 137/69
[2018-04-06] MEDS: inSUlin ASPART (NovoLOG) 1 UNIT/0.01 ML (CHARGE PER UNIT) SC SCH ×3 (13:37→20:41)
[2018-04-06 16:06] VITALS: BP 143/78
[2018-04-06] MEDS ORDERED: CETI10CA PO (19:11)
[2018-04-06] MEDS: LORATADINE (CLARITIN) 10 MG TAB PO SCH (20:39)
[2018-04-06 20:40] VITALS: BP 167/83
[2018-04-06] MEDS ORDERED: NIFEdipine ER 30 MG (PROCARDIA XL) TAB PO ONE (21:00)
[2018-04-06] MEDS ORDERED: CATHETER FLUSH 10 ML SYR IV SCH (22:00)
[2018-04-07] VITALS (9 sets, daily range): BP systolic 131–166; BP diastolic 66–96
[2018-04-07] MEDS: inSUlin ASPART (NovoLOG) 1 UNIT/0.01 ML (CHARGE PER UNIT) SC SCH (06:00)
[2018-04-07] MEDS: NIFEdipine ER 60 MG (PROCARDIA XL) TAB PO SCH (08:46)
[2018-04-07] MEDS: inSUlin DETERMIR 1 UNIT/0.01 ML (LEVEMIR) CHARGE PER UNIT SQ SCH ×2 (08:46→21:06)
[2018-04-07] MEDS ORDERED: NIFEdipine ER 30 MG (PROCARDIA XL) TAB PO SCH (09:00)
--- NOTE | 2018-04-07 09:35 | Diagnostic Imaging Report ---
Indication: Preeclampsia and diabetes. There is a single live fetus in a cephalic presentation. heart rate was recorded at 160 beats per minute. Amniotic fluid index is 10.7 cm. Biophysical profile was performed. The overall biophysical profile score is normal at 8 out of 8. Impression: Biophysical profile score 8 out of 8. Dictated by: Dictated on workstation # [id number]
--- NOTE | 2018-04-07 11:48 | Physician Progress Note ---
Progress Note Assessment/Plan Date Seen by Provider: Apr 07, 2018 Time Seen by Provider: 11:30 Events since last exam Increased Procardia to 60 mg daily due to some elevations in blood pressure. She has not had headaches nor blurred vision. There is good movement. She does have occasional contractions when doing NST but she does not feel these. She has had no pain and no bleeding. Blood sugars have been better since the betamethasone. Plan CS at 34 weeks. She is 32 6/7 today. Will plan CS on 04/17 unless there are signs of severe preeclampsia prior to that time. As her works for [employer], she would like transfer there if delivery is necessary prior to that time. There is no perinatologist available in [place] at this time so would transfer to where the NICU could take the baby, or to if she would require more care than could be managed at [facility] or [place]. At this time, however, she could be transferred to either place if this becomes necessary. Laboratory Tests Test 04/06/18 16:08 04/06/18 20:38 04/07/18 06:00 04/07/18 11:19 Range/Units Glucometer 129 H 136 H 77 107 70-110 MG/DL Vital Signs 04/07/18 11:24 Temp 97.7 Pulse 62 Resp 16 B/P (MAP) 133/81 (98) Pulse Ox 99 O2 Delivery Room Air 04/07/18 04/07/18 04/07/18 04/07/18 00:15 04:14 08:40 11:24 Temp 98.6 98.4 97.9 97.7 Pulse 63 61 67 62 Resp 18 16 B/P (MAP) 134/72 (92) 131/66 (87) 140/81 (100) 133/81 (98) Pulse Ox 98 98 98 99 O2 Delivery Room Air Room Air Room Air Room Air 04/07/18 00:00 Intake Total 1200 ml Output Total 1900 ml Balance -700 ml VS - Last 72 Hours, by Label 04/04/18 04/04/18 04/04/18 04/04/18 12:00 12:00 13:00 13:00 Temp 98.3 Pulse 81 81 78 78 Resp 18 18 18 B/P (MAP) 142/84 (103) 127/73 (91) O2 Delivery Room Air Room Air 04/04/18 04/04/18 04/04/18 04/04/18 14:00 14:00 15:00 15:00 Pulse 87 87 80 80 Resp 18 18 18 18 B/P (MAP) 130/83 (99) 130/87 (101) O2 Delivery Room Air Room Air 04/04/18 04/04/18 04/04/18 04/04/18 16:00 16:00 17:00 17:00 Temp 97.9 Pulse 85 85 78 78 Resp 18 18 18 18 B/P (MAP) 148/96 (113) 145/88 (107) Pulse Ox 97 O2 Delivery Room Air Room Air 04/04/18 04/04/18 04/04/18 04/04/18 18:00 18:00 19:00 19:00 Pulse 82 82 86 86 Resp 18 18 18 18 B/P (MAP) 137/78 (97) 141/86 (104) O2 Delivery Room Air Room Air 04/04/18 04/04/18 04/04/18 04/04/18 20:00 21:00 22:00 23:00 Pulse 81 81 81 81 Resp 18 16 18 16 04/05/18 04/05/18 04/05/18 04/05/18 00:00 01:00 02:00 03:00 Pulse 79 73 75 81 Resp 16 18 16 16 04/05/18 04/05/18 04/05/18 04/05/18 04:00 05:00 06:00 07:00 Pulse 78 78 75 75 Resp 16 18 18 18 04/05/18 04/05/18 04/05/18 04/05/18 08:00 09:00 10:00 11:00 Pulse 82 78 75 82 Resp 18 18 18 18 B/P (MAP) 153/89 (110) 165/95 (118) 152/90 (110) 152/91 (111) Pulse Ox 97 O2 Delivery Room Air Room Air Room Air Room Air 04/05/18 04/05/18 04/05/18 04/05/18 11:05 11:15 11:48 12:30 Pulse 92 90 83 71 Resp 18 18 18 18 B/P (MAP) 173/97 (122) 162/101 (121) 165/92 (116) 139/80 (99) Pulse Ox 98 94 O2 Delivery Room Air Room Air Room Air Room Air 04/05/18 04/05/18 04/05/18 04/05/18 13:45 14:45 15:45 20:32 Temp 97.2 Pulse 61 84 67 60 Resp 18 18 18 18 B/P (MAP) 111/73 (86) 114/73 (87) 133/82 (99) 128/75 (92) Pulse Ox 96 98 97 94 O2 Delivery Room Air Room Air Room Air Room Air 04/05/18 04/06/18 04/06/18 04/06/18 23:25 00:00 04:00 08:30 Temp 98.8 98.3 98.3 Pulse 60 71 69 79 Resp 18 18 18 18 B/P (MAP) 128/75 125/59 (81) 127/72 (90) 133/79 (97) Pulse Ox 96 95 O2 Delivery Room Air Room Air Room Air 04/06/18 04/06/18 04/06/18 04/06/18 12:30 12:57 16:06 20:40 Temp 98.1 98.0 Pulse 65 65 66 Resp 18 18 18 B/P (MAP) 137/69 (91) 143/78 (99) 167/83 (111) Pulse Ox 97 O2 Delivery Room Air Room Air Room Air 04/07/18 04/07/18 04/07/18 04/07/18 00:15 04:14 08:40 11:24 Temp 98.6 98.4 97.9 97.7 Pulse 63 61 67 62 Resp 18 18 18 16 B/P (MAP) 134/72 (92) 131/66 (87) 140/81 (100) 133/81 (98) Pulse Ox 98 98 98 99 O2 Delivery Room Air Room Air Room Air Room Air well being reassuring. Has regular contractions but these are mild. Cervix is unchanged. Closed, soft, 50% efface, ballottable, Cerclage in place. No bleeding, membranes intact. Lungs are CTA, Heart RRR Assessment/Plan 1. Preeclampsia = elevated blood pressured, proteinuria. No severe features yet. Labs have been with in normal limits. continue procardia 60 mg XL for elevated blood pressures and expectant management of preeclampsia. BPP today 8/ 8 with CHARU 10.7. 2. labor - magnesium tocolysis has been successful. Betamethasone x 2. 3. Type II diabetes in . Blood sugars are controlled with Levemir ( Lantus at home is not available). Some hyperglycemia is expected with the betamethasone, however, these have improved. Will continue sliding scale coverage. 4. She does have proteinuria. I do not have results of baseline 24 hour urine but she may have some underlying proteinuria due to the diabetes. Vitals Last set of Vitals Signs Vital Signs Date Time Temp Pulse Resp B/P (MAP) Pulse Ox O2 Delivery O2 Flow Rate FiO2 04/07/18 11:24 97.7 62 16 133/81 (98) 99 Room Air I&O I&O Intake and Output 04/07/18 00:00 Intake Total 1300 ml Output Total 2400 ml Balance -1100 ml Intake Oral 1300 ml Output Urine Total 2400 ml Labs Laboratory Tests 04/06/18 16:08: Glucometer 129H 04/06/18 20:38: Glucometer 136H 04/07/18 06:00: Glucometer 77 04/07/18 11:19: Glucometer 107 Focused Exam Respiratory: Lungs Clear, Normal Breath Sounds Cardiovascular: Regular Rate, Rhythm, Other (1+ edema. ) Clinical Quality Measures DVT/VTE Risk/Contraindication: VTE Present on Admission: EMILEE Clement DO Apr 07, 2018 11:48
[2018-04-07] MEDS: ACETAMINOPHEN 500 MG TAB (TYLENOL) PO PRN (15:59)
[2018-04-07] MEDS ORDERED: LABETALOL HCL 20 MG/4 ML VIAL IV ONE (18:45)
[2018-04-07] MEDS ORDERED: LABETALOL HCL 20 MG/4 ML VIAL ONE (18:47)
[2018-04-07] MEDS: LABETALOL 200 MG (NORMODYNE) TAB PO SCH (21:05)
[2018-04-07] MEDS: LORATADINE (CLARITIN) 10 MG TAB PO SCH (21:05)
[2018-04-08] VITALS (9 sets, daily range): BP systolic 137–181; BP diastolic 81–99
[2018-04-08] MEDS: inSUlin ASPART (NovoLOG) 1 UNIT/0.01 ML (CHARGE PER UNIT) SC SCH (06:00)
[2018-04-08] MEDS: LABETALOL 200 MG (NORMODYNE) TAB PO SCH ×2 (09:24→21:01)
[2018-04-08] MEDS: NIFEdipine ER 60 MG (PROCARDIA XL) TAB PO SCH (09:24)
[2018-04-08] MEDS: inSUlin DETERMIR 1 UNIT/0.01 ML (LEVEMIR) CHARGE PER UNIT SQ SCH ×2 (09:25→21:03)
--- NOTE | 2018-04-08 20:14 | Physician Progress Note ---
Progress Note Assessment/Plan Date Seen by Provider: Apr 08, 2018 Time Seen by Provider: 16:00 Events since last exam Blood pressures increased but still within parameters. No blurred vision. No headaches. No abdominal pain. Received 1 dose of IV labetalol this am and added po labetalol to the regimen for hypertension. well being reassuring. Some contractions but no pain, no bleeding, no leakage of fluid. Assessment/Plan 1. Preeclampsia, no severe features. Continue BP management, bedrest with BRP 2. labor s/p tocolysis/magnesium sulfate/ neuroprotection. Procardia 60 mg XR for blood pressure and labor, labetalol 200 mg bid. s/p betamethasone 3. Type II diabetes. Blood sugars elevated and controlled with Levemir, Humalog and sliding scale 4. History of delivery 5. Incompetent cervix, s/p cerclage 6. History of section Continue Procardia. Plan to deliver at 34 weeks via repeat section with risk reduction salpingectomy. Patient is AMA and high risk in future pregnancies. Vitals Last set of Vitals Signs 04/08/18 04/08/18 04/08/18 09:20 11:45 15:22 Temp 98.6 97.9 98.0 Pulse 67 73 62 Resp 18 18 16 B/P (MAP) 143/93 (110) 137/82 (100) 156/91 (112) Pulse Ox 97 97 98 O2 Delivery Room Air Room Air Room Air Vital Signs Date Time Temp Pulse Resp B/P (MAP) Pulse Ox O2 Delivery O2 Flow Rate FiO2 04/08/18 15:22 98.0 62 16 156/91 (112) 98 Room Air I&O I&O Intake and Output 04/08/18 00:00 Intake Total 700 ml Output Total 900 ml Balance -200 ml Intake Oral 700 ml Output Urine Total 900 ml Labs Laboratory Tests 04/07/18 21:08: Glucometer 131H 04/08/18 05:55: Glucometer 74 04/08/18 10:46: Glucometer 120H 04/08/18 15:22: Glucometer 121H Clinical Quality Measures DVT/VTE Risk/Contraindication: VTE Present on Admission: EMILEE Clement DO Apr 08, 2018 20:14
[2018-04-08] MEDS: LORATADINE (CLARITIN) 10 MG TAB PO SCH (21:01)
[2018-04-08] MEDS ORDERED: TERBUTALINE INJ 1 MG/ML (BRETHINE) AMP ONE (21:07)
[2018-04-08] MEDS ORDERED: morphine INJ 10 MG/ML 1ML (SYR OR VIAL) IVP ONE (21:15)
[2018-04-08] MEDS ORDERED: TERBUTALINE INJ 1 MG/ML (BRETHINE) AMP SC ONE (21:15)
[2018-04-08] MEDS ORDERED: LABETALOL HCL 20 MG/4 ML VIAL ONE ×2 (22:18→23:40)
[2018-04-08] MEDS ORDERED: LABETALOL HCL 20 MG/4 ML VIAL IV ONE ×3 (23:15)
[2018-04-09] VITALS (15 sets, daily range): BP systolic 104–172; BP diastolic 64–102
[2018-04-09] MEDS ORDERED: NIFEdipine 10 MG CAPS (WOMEN'S SERVICES ONLY!!!) PO ONE ×2 (01:07→01:15)
--- NOTE | 2018-04-09 02:24 | Physician Progress Note ---
Progress Note Assessment/Plan Date Seen by Provider: Apr 09, 2018 Time Seen by Provider: 02:00 Events since last exam Blood pressures elevated last night but no headaches, no blurred vision. Approaching severe levels. 178/98. Labetalol given. But then she began having more back pain (given pain medication x 1), then began having regular, more painful contractions. Had one episode of spotting (this was new). Given procardia x 1 and contractions continue but are slowing. Will plan transfer in the morning unless she has further bleeding or delivery is imminent. She is 33 1/7 weeks today. Recent BP 117/80 New labs pending. Has had improvement in blood pressures as well. she states back pain is better and contractions are less frequent and not painful. well being continues to be reassuring with average half-way variability, no decelerations, + accelerations. Assessment/Plan 1. Preeclampsia, no severe features. Continue BP management, bedrest with BRP - as blood pressures are increasing and nearing severe range will plan transfer to tertiary care center. She would like transfer to [facility] as her works there. Have discussed transfer there despite lack of perinatology. But they do have a NICU and neonatology with ob coverage. 2. labor s/p tocolysis/magnesium sulfate/ neuroprotection. Procardia 60 mg XR for blood pressure and labor, labetalol 200 mg bid. s/p betamethasone - now with increasing contractions and spotting (cerclage is intact) 3. Type II diabetes. Blood sugars elevated and controlled with Levemir, Humalog and sliding scale 4. History of delivery - 17 weeks and then 35 weeks (CS due to cord prolapse in labor, cerclage removed at 35 weeks due to spotting cervical dilation; has been receiving Kathia and last dose was 04/03/18, due again on ) 5. Incompetent cervix, s/p cerclage 6. History of section x 1; planning repeat CS with salpingectomy. 7. Patient is AMA (37). Vitals Last set of Vitals Signs Vital Signs Date Time Temp Pulse Resp B/P (MAP) Pulse Ox O2 Delivery O2 Flow Rate FiO2 04/09/18 00:54 69 18 172/95 (120) Room Air 04/08/18 21:01 98.4 98 I&O I&O Intake and Output 04/09/18 00:00 Intake Total 2000 ml Output Total 2100 ml Balance -100 ml Intake Oral 2000 ml Output Urine Total 2100 ml Labs Laboratory Tests 04/08/18 05:55: Glucometer 74 04/08/18 10:46: Glucometer 120H 04/08/18 15:22: Glucometer 121H 04/08/18 21:03: Glucometer 94 Focused Exam Respiratory: Chest Non Tender, Lungs Clear, Normal Breath Sounds Cardiovascular: Regular Rate, Rhythm, Other (1+ edema, SCDs in place) Clinical Quality Measures DVT/VTE Risk/Contraindication: VTE Present on Admission: EMILEE Clement DO Apr 09, 2018 02:24
[2018-04-09 02:30] LABS: BASOPHILS % (AUTO) 0 % (0-10); EOSINOPHILS # (AUTO) 0.1 10^3/uL (0.0-0.3); EOSINOPHILS % (AUTO) 1 % (0-10); HEMATOCRIT 38 % (35-52); HEMOGLOBIN 12.8 G/DL (11.5-16.0); LYMPHOCYTES # (AUTO) 1.4 X 10^3 (1.0-4.0); LYMPHOCYTES % (AUTO) 14 % (12-44); MEAN CORPUSCULAR HEMOGLOBIN 27 PG (25-34); MEAN CORPUSCULAR HGB CONC 34 G/DL (32-36); MEAN CORPUSCULAR VOLUME 81 FL (80-99); MEAN PLATELET VOLUME 10.1 FL (7.4-10.4); MONOCYTES # (AUTO) 0.5 X 10^3 (0.0-1.0); MONOCYTES % (AUTO) 5 % (0-12); NEUTROPHILS # (AUTO) 8.2 X 10^3 (1.8-7.8); NEUTROPHILS % (AUTO) 80 % (42-75); PLATELET COUNT 200 10^3/uL (130-400); RED BLOOD COUNT 4.74 10^6/uL (4.35-5.85); WHITE BLOOD COUNT 10.2 10^3/uL (4.3-11.0)
[2018-04-09 02:49] LABS: ALANINE AMINOTRANSFERASE 18 U/L (0-55); ALBUMIN 3.1 GM/DL (3.2-4.5); ALKALINE PHOSPHATASE 109 U/L (40-136); BILIRUBIN,TOTAL 0.2 MG/DL (0.1-1.0); BUN/CREATININE RATIO 23; CALCIUM 9.8 MG/DL (8.5-10.1); CARBON DIOXIDE 15 MMOL/L (21-32); CHLORIDE 107 MMOL/L (98-107); CREATININE SERUM 0.64 MG/DL (0.60-1.30); GFR ESTIMATED > 60; GLUCOSE 100 MG/DL (70-105); POTASSIUM 4.1 MMOL/L (3.6-5.0); SODIUM 135 MMOL/L (135-145); TOTAL PROTEIN 6.6 GM/DL (6.4-8.2); URIC ACID 6.7 MG/DL (2.6-7.2)
[2018-04-09] MEDS ORDERED: NIFEdipine 10 MG CAPS (WOMEN'S SERVICES ONLY!!!) PO SCH (05:15)
[2018-04-09] MEDS: ACETAMINOPHEN 500 MG TAB (TYLENOL) PO PRN (08:18)
[2018-04-09] MEDS: LABETALOL 200 MG (NORMODYNE) TAB PO SCH (08:19)
[2018-04-09] MEDS: NIFEdipine ER 60 MG (PROCARDIA XL) TAB PO SCH (08:31)
--- NOTE | 2018-04-09 08:45 | Physician Progress Note ---
Progress Note Assessment/Plan Date Seen by Provider: Apr 09, 2018 Time Seen by Provider: 08:30 Events since last exam contractions have slowed. She continues to have spotting but no obvious bleeding. Last exam was . Will recheck. Blood pressures are better but she is breaking through. Labs wnl (no obvious change from admission). Will transfer today as she is 33 weeks 1 day and will likely not make 34 weeks for delivery. Patient is repeat CS and desires salpingectomy/tubal ligation. well being has been reassuring with occasional dips. She is currently terri every 4-5 minutes (was every 1-2 prior to procardia). 04/08/18 04/08/18 04/08/18 04/08/18 21:01 22:12 22:13 23:03 Temp 98.4 Pulse 57 54 54 57 Resp 18 18 18 18 B/P (MAP) 176/98 (124) 168/99 (122) 172/99 (123) 181/97 (125) Pulse Ox 98 O2 Delivery Room Air Room Air Room Air Room Air 04/08/18 04/09/18 04/09/18 04/09/18 23:38 00:54 01:30 01:45 Pulse 58 69 72 75 Resp 18 18 18 18 B/P (MAP) 181/95 (123) 172/95 (120) 136/80 (98) 122/77 (92) O2 Delivery Room Air Room Air Room Air Room Air 04/09/18 04/09/18 04/09/18 04/09/18 02:00 02:15 02:30 02:45 Pulse 71 66 74 81 Resp 18 18 18 18 B/P (MAP) 117/75 (89) 110/64 (79) 104/65 (78) 112/69 (83) O2 Delivery Room Air Room Air Room Air Room Air 04/09/18 04/09/18 04/09/18 04/09/18 03:00 03:30 04:00 04:30 Pulse 66 Resp 18 18 B/P (MAP) 126/71 (89) O2 Delivery Room Air Room Air Room Air Room Air 04/09/18 04/09/18 04/09/18 04/09/18 05:00 05:30 06:00 06:30 Pulse 62 67 Resp 18 18 18 18 B/P (MAP) 131/75 (93) 117/74 (88) O2 Delivery Room Air Room Air Room Air Room Air 04/09/18 07:00 Pulse 57 Resp 18 B/P (MAP) 148/86 (106) O2 Delivery Room Air 04/09/18 00:00 Intake Total 1400 ml Output Total 1200 ml Balance 200 ml Assessment/Plan 1. Preeclampsia, no severe features. Continue BP management, bedrest with BRP - as blood pressures are increasing and nearing severe range will plan transfer to tertiary care center. She would like transfer to [facility] (written previously has [facility], my mistake) as her works there. Have discussed transfer there despite lack of perinatology. But they do have a NICU and neonatology with ob coverage. 2. labor s/p tocolysis/magnesium sulfate/ neuroprotection. Procardia 60 mg XR for blood pressure and labor, labetalol 200 mg bid. s/p betamethasone - now with increasing contractions and spotting (cerclage is intact) 3. Type II diabetes. Blood sugars elevated and controlled with Levemir, Humalog and sliding scale 4. History of delivery - 17 weeks and then 35 weeks (CS due to cord prolapse in labor, cerclage removed at 35 weeks due to spotting cervical dilation; has been receiving Kathia and last dose was 04/03/18, due again on ). well being has been reassuring. 5. Incompetent cervix, s/p cerclage 6. History of section x 1; planning repeat CS with salpingectomy. 7. Patient is AMA (37). Vitals Last set of Vitals Signs Vital Signs Date Time Temp Pulse Resp B/P (MAP) Pulse Ox O2 Delivery O2 Flow Rate FiO2 04/09/18 07:00 57 18 148/86 (106) Room Air 04/08/18 21:01 98.4 98 I&O I&O Intake and Output 04/09/18 00:00 Intake Total 2000 ml Output Total 2100 ml Balance -100 ml Intake Oral 2000 ml Output Urine Total 2100 ml Labs Laboratory Tests 04/08/18 10:46: Glucometer 120H 04/08/18 15:22: Glucometer 121H 04/08/18 21:03: Glucometer 94 04/09/18 02:23: White Blood Count 10.2, Red Blood Count 4.74, Hemoglobin 12.8#, Hematocrit 38, Mean Corpuscular Volume 81, Mean Corpuscular Hemoglobin 27, Mean Corpuscular Hemoglobin Concent 34, Red Cell Distribution Width 15.0H, Platelet Count 200, Mean Platelet Volume 10.1, Neutrophils (%) (Auto) 80H, Lymphocytes (%) (Auto) 14 , Monocytes (%) (Auto) 5, Eosinophils (%) (Auto) 1, Basophils (%) (Auto) 0, Neutrophils # (Auto) 8.2H, Lymphocytes # (Auto) 1.4, Monocytes # (Auto) 0.5, Eosinophils # (Auto) 0.1, Basophils # (Auto) 0.0, Sodium Level 135, Potassium Level 4.1, Chloride Level 107, Carbon Dioxide Level 15L, Anion Gap 13, Blood Urea Nitrogen 15, Creatinine 0.64, Estimat Glomerular Filtration Rate > 60, BUN/ Creatinine Ratio 23, Glucose Level 100, Uric Acid 6.7, Calcium Level 9.8, Corrected Calcium 10.5H, Total Bilirubin 0.2, Aspartate Amino Transf (AST/SGOT) 15, Alanine Aminotransferase (ALT/SGPT) 18, Alkaline Phosphatase 109, Lactate Dehydrogenase 226H, Total Protein 6.6, Albumin 3.1L 04/09/18 05:51: Glucometer 106 Focused Exam Respiratory: Chest Non Tender, Lungs Clear Cardiovascular: Other (2+) Clinical Quality Measures DVT/VTE Risk/Contraindication: VTE Present on Admission: EMILEE Clement DO Apr 09, 2018 08:45
--- NOTE | 2018-04-09 08:48 | Discharge Summary ---
Diagnosis/Chief Complaint Date of Admission Apr 03, 2018 at 15:11 Date of Discharge 04/09/18 Discharge Date: Apr 09, 2018 Discharge Time: 09:15 Admission Diagnosis Admission Diagnosis 1. Patient is admitted for treatment of preeclampsia 2. contractions with threatened delivery/ history of delivery 3. Type II diabetes in 4. History of cervical incompetence s/p Cerclage 5. History of previous section. Discharge Diagnosis 1. Preeclampsia, mild-moderate, no severe features 2. labor (33 1/7 weeks), s/p magnesium, betamethasone and now on procardia. Now continuing to contract and having spotting/bleeding. 3. History of incompetent cervix/cerclage placement at 14 weeks. 4. History of delivery 35 weeks 5. previous section at 35 weeks, with history of umbilical cord prolapse 6. Type II diabetes, controlled on Levemir (lantus at home); some hyperglycemia after betamethasone, now will good control 7. Advanced maternal age (37) 8. Desires permanent sterilization. Was planning salpingectomy here. Reason Hospital Visit History at admission - Soledad presented to the clinic today for routine visit. She presented without complaint. During routine scheduled non stress test (due to history of delivery and diabetes in , AMA) she was having fairly regular contractions. She was not feeling them all and they were mild, but she had two variable decelerations. The rest of the strip was reactive, but she was sent to labor and delivery for continued monitoring. Her blood pressure in the clinic was 128/90. Also 1000 glucose and 100 protein on urine dip. She was otherwise asymptomatic. She was sent to the floor and monitoring was reassuring. She has not had any bleeding. She was terri about every 3-4 minutes but theses were not painful and she did not notice many of them. However, her blood pressures while being monitored were elevated (175/98 and 169/100). PIH labs and prot/ creat were done. Labs wnl but prot/creat was 0.6. We do not have a 24 hour urine nor a previous ratio. She has had normal survey and growth scans have been within normal limits. She has been receiving IM hydroxyprogesterone injections weekly Received flu vaccine and TDaP. History - she has a cerclage placed at 13 weeks due to history of cervical incompetence. She also has history of delivery at 17 weeks due to incompetent cervix. Her last was complicated by cerclage. She reached 35 weeks and had cerclage removed at 35 weeks due to contractions and vaginal spotting. She continued into labor the next day and had spontaneous prolapsed cord and had emergency section. This was spontaneous. She has a history of PCOS and had recently developed diabetes (Type II) managed by Dr. Auguste. She has managed her blood sugars and insulin dosing. She was up to 64 units bid and then decreased to 60 units a few weeks ago. This has been increased again, but we had discussed the concern for the decrease in insulin demand. Her last A1C was 4.8. The patient also is AMA. She has another son that is adopted. He has congenital CMV so the patient was concerned with exposure, but her testing has been negative (she has never had symptoms). She was admitted for evaluation of the non stress test. While she was being evaluated, she had severe elevations in blood pressure. Prot/creat 0.61. Admitted for magnesium sulfate (neuroprotection, tocolysis and treatment of preeclampsia). Betamethasone was started. Discharge Summary Hospital Course Hospital Course Patient was admitted and started on magnesium sulfate for preeclampsia seizure prophylaxis, neuroprotection, and tocolysis. Received betamethasone x 2. the magnesium was successful at controlling blood pressures while she was on it and she had excellent diuresis. And her contractions stopped. But once the magnesium was stopped she had increase in her blood pressures. Was started on Procardia 30 mg XL and increased to 60 mg XL. However, over the last 36 hours, blood pressures have increased and she has required prn antihypertensives. Was started on labetalol 200 mg bid but this was not enough to control the pressures. In addition she was having more painful contractions. She also had spotting and her cervix, previously closed, was now 1 cm dilated/80% effaced wit spotting suggesting that she was laboring with pulling the cerclage. She was given IR procardia and this slowed the contractions. Blood pressures are now low, but she continues to contract, though they are slow. At this time will plan to transfer to [facility]. She did not eat breakfast and will hold her insulin. Labs Laboratory Tests 04/06/18 11:24: Glucometer 137H 04/06/18 16:08: Glucometer 129H 04/06/18 20:38: Glucometer 136H 04/07/18 06:00: 04/07/18 11:19: 04/07/18 13:36: 04/07/18 21:08: Glucometer 131H 04/08/18 05:55: 04/08/18 10:46: Glucometer 120H 04/08/18 15:22: Glucometer 121H 04/08/18 21:03: 04/09/18 02:23: Red Cell Distribution Width 15.0H, Neutrophils (%) (Auto) 80H, Neutrophils # ( Auto) 8.2H, Carbon Dioxide Level 15L, Corrected Calcium 10.5H, Lactate Dehydrogenase 226H, Albumin 3.1L 04/09/18 05:51: Pending Labs Laboratory Tests Test 04/06/18 11:24 04/06/18 16:08 04/06/18 20:38 04/07/18 06:00 Range/Units Glucometer 137 H 129 H 136 H 77 70-110 MG/DL Test 04/07/18 11:19 04/07/18 13:36 04/07/18 21:08 04/08/18 05:55 Range/Units Glucometer 107 76 131 H 74 70-110 MG/DL Test 04/08/18 10:46 04/08/18 15:22 04/08/18 21:03 04/09/18 02:23 Range/Units Glucometer 120 H 121 H 94 70-110 MG/DL White Blood Count 10.2 4.3-11.0 10^3/uL Red Blood Count 4.74 4.35-5.85 10^6/uL Hemoglobin 12.8 # 11.5-16.0 G/DL Hematocrit 38 35-52 % Mean Corpuscular Volume 81 80-99 FL Mean Corpuscular Hemoglobin 27 25-34 PG Mean Corpuscular Hemoglobin Concent 34 32-36 G/DL Red Cell Distribution Width 15.0 H 10.0-14.5 % Platelet Count 200 130-400 10^3/uL Mean Platelet Volume 10.1 7.4-10.4 FL Neutrophils (%) (Auto) 80 H 42-75 % Lymphocytes (%) (Auto) 14 12-44 % Monocytes (%) (Auto) 5 0-12 % Eosinophils (%) (Auto) 1 0-10 % Basophils (%) (Auto) 0 0-10 % Neutrophils # (Auto) 8.2 H 1.8-7.8 X 10^3 Lymphocytes # (Auto) 1.4 1.0-4.0 X 10^3 Monocytes # (Auto) 0.5 0.0-1.0 X 10^3 Eosinophils # (Auto) 0.1 0.0-0.3 10^3/uL Basophils # (Auto) 0.0 0.0-0.1 10^3/uL Sodium Level 135 135-145 MMOL/L Potassium Level 4.1 3.6-5.0 MMOL/L Chloride Level 107 98-107 MMOL/L Carbon Dioxide Level 15 L 21-32 MMOL/L Anion Gap 13 5-14 MMOL/L Blood Urea Nitrogen 15 7-18 MG/DL Creatinine 0.64 0.60-1.30 MG/DL Estimat Glomerular Filtration Rate > 60 BUN/Creatinine Ratio 23 Glucose Level 100 70-105 MG/DL Uric Acid 6.7 2.6-7.2 MG/DL Calcium Level 9.8 8.5-10.1 MG/DL Corrected Calcium 10.5 H 8.5-10.1 MG/DL Total Bilirubin 0.2 0.1-1.0 MG/DL Aspartate Amino Transf (AST/SGOT) 15 5-34 U/L Alanine Aminotransferase (ALT/SGPT) 18 0-55 U/L Alkaline Phosphatase 109 40-136 U/L Lactate Dehydrogenase 226 H 125-220 U/L Total Protein 6.6 6.4-8.2 GM/DL Albumin 3.1 L 3.2-4.5 GM/DL Test 04/09/18 05:51 Range/Units Glucometer 106 70-110 MG/DL Other Pending Tests none Discharge Physical Examination Allergies: Coded Allergies: No Known Drug Allergies (Unverified , 11/11/17) Vitals & I&Os Vital Signs Date Time Temp Pulse Resp B/P (MAP) Pulse Ox O2 Delivery O2 Flow Rate FiO2 04/09/18 07:00 57 18 148/86 (106) Room Air 04/08/18 21:01 98.4 98 General Appearance: Alert, Oriented X3 HEENT: Atraumatic Respiratory: Clear to Auscultation, Normal Air Movement Cardiovascular: Regular Rate, Normal S1, Normal S2, No Murmurs Abdominal: Normal Bowel Sounds Extremities: Other (1-2+ edema, SCDs in place) Skin: No Rashes, No Breakdown Neuro: Normal Gait, Normal Speech, Strength at 5/5 X4 Ext, Normal Tone Psych/Mental Status: Mental Status NL Discussion & Recommendations See above. Discharge Home Medications Reviewed and agree with Discharge Medication list on patient's Discharge Instruction sheet Condition at Discharge Stable Instructions to Patient/Family Please see electronic discharge instructions given to patient. Clinical Quality Measures DVT/VTE Risk/Contraindication: VTE Present on Admission: EMILEE Clement DO Apr 09, 2018 08:48
[2018-04-09] MEDS: inSUlin DETERMIR 1 UNIT/0.01 ML (LEVEMIR) CHARGE PER UNIT SQ SCH (09:00)
[2018-04-09] MEDS ORDERED: [UNRECOGNIZED DRUG - OTHER] IV ONE (09:59)
[2018-04-09] MEDS ORDERED: NS IV 1000 ML 0 ML ONE (09:59)
[2018-04-09] MEDS ORDERED: MAGNESIUM IV ONE (09:59)
[2018-04-09] MEDS ORDERED: MAGNESIUM 4 GM/100 ML IVPB 100 ML IV ONE (10:00)
[2018-04-09] MEDS ORDERED: NS IV 1000 ML 1,000 ML IV SCH (10:00)
[2018-04-09] MEDS ORDERED: MAGNESIUM SULFATE DRIP 500 ML IV SCH (10:30)
== END 2018-04-09 10:25 | disposition short-term general hospital (02) | DRG 831 ==
LOC: WSo 12:02 → LDRP 12:02 → WSo 15:10 → LDRP 15:11
PROVIDERS: ADMIT Obstetrics & Gynecology; ATTEND Obstetrics & Gynecology
DX: O14.03 Mild to moderate pre-eclampsia, third trimester (principal); O34.33 Maternal care for cervical incompetence, third trimester; O24.113 Pre-existing type 2 diabetes mellitus, in pregnancy, third trimester; O34.211 Maternal care for low transverse scar from previous cesarean delivery; O99.283 Endocrine, nutritional and metabolic diseases complicating pregnancy, third trimester; E78.5 Hyperlipidemia, unspecified; O09.523 Supervision of elderly multigravida, third trimester; O09.213 Supervision of pregnancy with history of pre-term labor, third trimester; Z3A.32 32 weeks gestation of pregnancy; Z79.4 Long term (current) use of insulin
CPT/HCPCS: 36415; 76805; 76819; 80053; 82570; 82962; 83615; 83735; 84156; 84550; 85007; 85025; 85027